=== PATIENT | female | born 1950 | race Caucasian/White ===

== ENCOUNTER 2018-08-11 11:32 | Outpatient (CLI) | payer MEDICARE ==
--- NOTE | 2018-08-11 21:03 | RAD ---
CHEST TWO VIEWS 08/11/18 The heart is normal in size and the lungs are clear. There is no sign of active thoracic disease at t he moment. The mediastinum appears normal and the trachea is midline. IMPRESSION: No acute thoracic finding. POS: HOME
== END 2018-08-11 11:33 | disposition home or self-care (01) ==
LOC: BURRAD 11:32
PROVIDERS: ATTEND Family Medicine
DX: R76.11 Nonspecific reaction to tuberculin skin test without active tuberculosis (principal)
CPT/HCPCS: 71046

== ENCOUNTER 2021-01-19 14:45 | Outpatient (CLI) | payer MEDICARE | END 2021-01-19 14:46 | disposition home or self-care (01) | LOC: BURRAD 14:45 | PROVIDERS: ATTEND Registered Nurse Community Health | DX: R06.00 Dyspnea, unspecified (principal) | CPT/HCPCS: 71046 ==